=== PATIENT | male | born 1995 | race Caucasian/White ===

== ENCOUNTER 2017-01-07 17:41 | Emergency (ER) | payer OTHER ==
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
[2017-01-07 19:24] VITALS: BP 146/95
== END 2017-01-07 19:15 | disposition home or self-care (01) ==
LOC: ER 17:41
DX: S16.1XXA Strain of muscle, fascia and tendon at neck level, initial encounter (principal); R51 Headache; V49.40XA Driver injured in collision with unspecified motor vehicles in traffic accident, initial encounter
CPT/HCPCS: 99283